=== PATIENT | female | born 1965 | race Two or more races ===

== ENCOUNTER 2023-09-15 23:12 | Emergency (ER) | payer MEDICAID ==
[~2023-09-15] VITALS: Ht 154.9 cm; Wt 77.0 kg
[~2023-09-15 23:12] MED LIST: ATOR40TA70 MT; METF-414 MT; TOPUD PO
[2023-09-15 23:16] VITALS: BP 108/69; PULSE 69; RESP 20; TEMP 98.2; O2SAT 99
[2023-09-15 23:50] LABS: BASOPHILS % 0.6 % (0.0-2.0); HEMATOCRIT. 37.6 % (36.0-48.0); HEMOGLOBIN. 12.5 g/dL (12.0-16.0); LYMPHOCYTES % 35.6 % (20.0-50.0); MEAN CORPUSCULAR HEMOGLOBIN 27.8 pg (28.0-32.0); MEAN CORPUSCULAR HGB CONC 33.4 g/dL (31.0-37.0); MEAN CORPUSCULAR VOLUME 83.3 fL (81.0-99.0); MEAN PLATELET VOLUME 8.4 fl (7.4-10.4); MONOCYTES % 4.6 % (2.0-8.0); NEUTROPHILS % 57.2 % (40.0-76.0); PLATELET 227 x1000/uL (130-400); RED BLOOD CELL COUNT 4.51 mill/uL (4.2-5.4); RED CELL DISTRIBUTION WIDTH 13.9 % (11.6-14.6); WHITE BLOOD COUNT 9.2 x1000/uL (4.5-11.0)
[2023-09-15 23:57] LABS: CHLORIDE 107 mEq/L (98-107); POTASSIUM 3.7 mEq/L (3.5-5.1); SODIUM 140 mEq/L (136-145)
[2023-09-15 23:58] LABS: CARBON DIOXIDE 26 mEq/L (21-32)
[2023-09-16 00:03] LABS: CREATININE 0.7 mg/dL (0.6-1.0); GLUCOSE 165 mg/dL (70-105); UREA NITROGEN BLOOD 15 mg/dL (9-23)
[2023-09-16 00:12] LABS: TROPONIN I HIGH SENSITIVITY < 4 ng/L (3.0-34)
== END 2023-09-16 01:43 | disposition home or self-care (01) ==
LOC: ER 23:12
DX: R07.89 Other chest pain (principal); E11.9 Type 2 diabetes mellitus without complications; I10 Essential (primary) hypertension; E78.00 Pure hypercholesterolemia, unspecified
CPT/HCPCS: 36415; 71045; 80048; 84484; 85025; 93005; 99285

== ENCOUNTER 2024-01-08 15:14 | Emergency (ER) | payer MEDICAID ==
[~2024-01-08] VITALS: Ht 167.6 cm; Wt 82.0 kg
[~2024-01-08 15:14] MED LIST changes: +CYCL10TA21 PO; +FAMO40TA70 PO; +FERR325T30 PO; +FLUO-335 PO; +GABA-529 PO; +LISI2.5T47 PO; +MELO-104 PO; +METF-414 PO; +METO-396 PO; +ONDA4TAB50 PO; +PANT40SU PO; +SITA100T11 PO
[2024-01-08 15:19] VITALS: BP 128/60; PULSE 80; RESP 16; TEMP 98.6; O2SAT 100
[2024-01-08] MEDS ORDERED: ACYC200C31 MT (18:27)
[2024-01-08] MEDS ORDERED: IBUP-1523 MT (18:27)
[2024-01-08] MEDS ORDERED: TOPUD MT (18:27)
== END 2024-01-08 19:50 | disposition home or self-care (01) ==
LOC: ER 15:24
DX: B00.9 Herpesviral infection, unspecified (principal); E78.00 Pure hypercholesterolemia, unspecified; E11.9 Type 2 diabetes mellitus without complications; I10 Essential (primary) hypertension; Z20.822 Contact with and (suspected) exposure to COVID-19; Z79.899 Other long term (current) drug therapy; Z90.10 Acquired absence of unspecified breast and nipple
CPT/HCPCS: 71045; 87426; 99284